=== PATIENT | female | born 1970 | race Caucasian/White ===

== ENCOUNTER → 2023-12-05 08:03 | Outpatient (REF) | payer BC, SELFPAY | LOC: HWRAD 08:03 | PROVIDERS: ATTENDING PHYSICIAN Obstetrics & Gynecology; FAMILY PHYSICIAN Nurse Practitioner | DX: D25.9 Leiomyoma of uterus, unspecified (principal) | CPT/HCPCS: 76830; 76856 ==

== ENCOUNTER 2023-12-21 06:08 | Day surgery (SDC) | payer BC, SELFPAY ==
[2023-12-19 13:54] VITALS: BMI 28.3
[2023-12-19 14:26] LABS: % Basophils 0.7 % (0-2); % Eosinophils 1.1 % (0-6); % Immature Granulocytes 0.2 % (0-0.5); % Lymphocytes 29.5 % (20.5-51.1); % Monocytes 6.6 % (1.7-9.3); % Neutrophils 61.9 % (42.2-75.2); Absolute Basophils 0.1 10^3/uL (0-0.2); Absolute Eosinophils 0.1 10^3/uL (0-0.7); Absolute Lymphocytes 2.7 10^3/uL (1.2-3.4); Absolute Monocytes 0.6 10^3/uL (0.1-0.6); Absolute Neutrophils 5.7 10^3/uL (1.4-6.5); Hematocrit 39.7 % (37.0-47.0); Hemoglobin 13.1 g/dL (12.0-16.0); Mean Platelet Volume 10.4 fL (7.4-10.4); Nucleated Red Blood Cells % 0 %; Platelet Count 313 10^3/uL (130-400); Red Blood Cell Count 4.51 10^6/uL (4.20-5.40); Red Cell Dist. Width 13.4 % (11.5-14.5); White Blood Cell Count 9.1 10^3/uL (4.8-10.8)
[2023-12-19 14:40] LABS: INR 1.02; PT 13.4 Sec (11.4-14.6)
[2023-12-19 14:41] LABS: APTT 25.3 Sec (23.4-35.0)
[2023-12-21] VITALS (29 sets, daily range): BP systolic 49–152; BP diastolic 39–92; BMI 28.3
[2023-12-21] MEDS: NORMOSOL-R 1000 IV (09:15)
[2023-12-21 13:13] LABS: Glucose - Point of Care 103 mg/dl (70-99)
== END 2023-12-21 17:29 | disposition home or self-care (01) ==
LOC: SDS 06:08
PROVIDERS: ATTENDING PHYSICIAN Obstetrics & Gynecology; FAMILY PHYSICIAN Nurse Practitioner
DX: N84.1 Polyp of cervix uteri (principal); N93.9 Abnormal uterine and vaginal bleeding, unspecified
CPT/HCPCS: 58563; 88305; 36415; 82962; 85025; 85610; 85730; 93005

== ENCOUNTER → 2024-01-04 08:00 | Outpatient (REF) | payer BC, SELFPAY | LOC: WDC 08:00 | PROVIDERS: ATTENDING PHYSICIAN Obstetrics & Gynecology; FAMILY PHYSICIAN Nurse Practitioner | DX: Z12.31 Encounter for screening mammogram for malignant neoplasm of breast (principal) | CPT/HCPCS: 77063; 77067 ==

== ENCOUNTER → 2025-01-06 07:58 | Outpatient (REF) | payer BC, SELFPAY | LOC: WDC 07:58 | PROVIDERS: ATTENDING PHYSICIAN Obstetrics & Gynecology; FAMILY PHYSICIAN Nurse Practitioner | DX: Z12.31 Encounter for screening mammogram for malignant neoplasm of breast (principal) | CPT/HCPCS: 77063; 77067 ==

== ENCOUNTER → 2025-01-19 10:36 | Outpatient (REF) | payer BC, SELFPAY | LOC: WDC 10:36 | PROVIDERS: ATTENDING PHYSICIAN Obstetrics & Gynecology; FAMILY PHYSICIAN Nurse Practitioner | DX: R92.8 Other abnormal and inconclusive findings on diagnostic imaging of breast (principal) | CPT/HCPCS: 76642 ==